=== PATIENT | male | born 1975 | race Caucasian/White ===

== ENCOUNTER → 2024-01-06 11:22 | Outpatient (REF) | payer BC, SELFPAY | LOC: RAD 11:22 | PROVIDERS: ATTENDING PHYSICIAN Family Medicine | DX: S90.32XA Contusion of left foot, initial encounter (principal) | CPT/HCPCS: 73630 ==

== ENCOUNTER 2024-02-01 19:14 | Emergency (ER) | payer SELFPAY ==
[2024-02-01 19:18] VITALS: BP 154/105
--- NOTE | 2024-02-01 20:00 | ED.GENMED ---
History of Present Illness
General
Chief Complaint: Musculo-Skeletal Complaint
Source: patient
Time Seen by Provider: 02/01/24 19:49
History of Present Illness
History of Present Illness:
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
towards an embankment and after things settle down noticed some pain in the posterior portion of his knee and limited range of motion. Patient does note previous ACL repair in the same knee a few years ago. No other injuries or concerns at this
time.
Past History
Past History
ED Past Medical History: Other (Psoriasis)
ED Past Surgical History: Orthopedic
Social History
Tobacco: Non-smoker
Alcohol: Occasional
Drug: None
Personal:
Living: with family
Employment: Employed
Review of Systems
Review of Systems
All Other Systems: ROS reviewed and negative except as documented in HPI and ROS
Phy Exam
Physical Exam
Physical Exam:
GENERAL: Alert , in no apparent distress
EYE: conjunctiva clear
Head: Normocephalic atraumatic
NECK: Supple,
ENT: mmm.
LUNGS: no acute respiratory distress
NEUROLOGICAL: Alert and oriented
SKIN: Warm and dry, skin intact.
MUSCULOSKELETAL: Left knee: No soft tissue swelling, erythema, ecchymosis, abrasions or lacerations. No joint effusion. There is tenderness posteriorly at the popliteal fossa. Patient has limited flexion secondary to pain. Able to fully extend
without difficulty. No joint laxity. No tenderness over the patellofemoral jointline anteriorly. No medial or lateral tenderness along the patella.
PSYCH: Normal and appropriate interaction.
Scores
Heart Failure Risk
Heart Failure Risk Score: Not Applicable
Heart Score for Chest Pain Patients
STEMI patient?: Not applicable
Withdrawal Assessment of Alcohol
Withdrawal Assessment Completed?: Not applicable
Course
Orders/Labs/Results
Orders:
Orders
02/01/24 19:23
Knee, Left 4 or More Views [CR Knee - Left 4 Or More View*] Urgent
Comment:
Reason For Exam: injury
02/01/24 20:00
Crutches-Treatment ONCE
Knee Immobilizer Left-Treatmen ONCE
Vital Signs
Initial and Last Documented VS:
Initial Vital Signs
Temp Pulse Resp BP Pulse Ox
98.2 F 101 20 154/105 96
02/01/24 19:18 02/01/24 19:18 02/01/24 19:18 02/01/24 19:18 02/01/24 19:18
Last Documented Vital Signs
Temp Pulse Resp BP Pulse Ox
98.2 F 101 20 154/105 96
02/01/24 19:18 02/01/24 19:18 02/01/24 19:18 02/01/24 19:18 02/01/24 19:18
MDM/Problems Addressed
Differential Diagnosis Includes:
Ligamentous injury, meniscal injury, less concern for fracture
MDM/Problems Addressed:
48-year-old male presenting the ER for evaluation of left knee pain while apprehending a suspect. Patient notes previous history of ACL repair in the same knee. X-ray was ordered from triage and does not show any acute abnormalities. I suspect a
possible ligamentous sprain. Will place patient in a knee immobilizer, ice and elevation, crutches as needed. Patient can use NSAIDs/Tylenol as needed for pain. He had seen [facility] orthopedics in the past and will contact them for a
follow-up visit. Aware of return precautions to the ER.
*Radiology
Radiology exam reviewed: preliminary read by ED provider (No acute fracture)
*Pulse Oximetry
Patient hypoxic: no
*Critical Care Note
Total Time (30-74mins, 75-104mins- exclusive of procedures): Not Applicable
ED Attending Note
-
Portions of this chart may have been created with voice recognition software.� Occasional wrong word or��sound alike� substitutions may have occurred due to the inherent limitations of voice recognition software.
Discharge Plan
Departure
Patient Disposition: Home (Routine Discharge)
Date of Disposition: 02/01/24
Time of Disposition: 20:00
Patient with high blood pressure during this ER visit?: Yes
Discharge Problem:
Left knee pain
Instructions: Knee Pain (DC)
Prescriptions:
No Action
sulfamethoxazole-trimethoprim 1 TABLET tablet
1 tab PO BID Qty: 14 0RF
Referrals:
Alcides King MD [Active] -
Stand Alone Forms: Return to Work
Interventions
Interventions:
*Risk Screen - Suicide Last Done: 02/01/24 19:18
*General Assessment Last Done: 02/01/24 19:18
*Neglect/Abuse Screening Last Done: 02/01/24 19:18
ED- Fall Risk Assessment Last Done: 02/01/24 19:18
*ED COVID-19 Vaccine History Last Done: 02/01/24 19:18
*Nursing Disposition Last Done: 02/01/24 20:14
ED-Musculoskeletal Assessment Last Done: 02/01/24 20:13
Discharge Date and Time
Discharge Date/Time: 02/01/24 20:22
Print Language: PALESTINIAN
== END 2024-02-01 20:22 | disposition home or self-care (01) ==
LOC: EMR 19:14
PROVIDERS: EMERGENCY PHYSICIAN Student in an Organized Health Care Education/Training Program; FAMILY PHYSICIAN Family Medicine
DX: S89.92XA Unspecified injury of left lower leg, initial encounter (principal); M25.562 Pain in left knee; W17.81XA Fall down embankment (hill), initial encounter; Y93.89 Activity, other specified; Y92.89 Other specified places as the place of occurrence of the external cause; Y99.0 Civilian activity done for income or pay; R03.0 Elevated blood-pressure reading, without diagnosis of hypertension; L40.9 Psoriasis, unspecified
CPT/HCPCS: 99283; 29505; 73564

== ENCOUNTER 2024-03-02 01:51 | Emergency (ER) | payer BC, SELFPAY ==
[2024-03-02] VITALS (7 sets, daily range): BP systolic 133–177; BP diastolic 79–114; BMI 36.1
[2024-03-02] MEDS: TORADOL 15 MG IV (02:28)
[2024-03-02 02:39] LABS: % Basophils 0.5 % (0-2); % Eosinophils 2.4 % (0-6); % Immature Granulocytes 0.4 % (0-0.5); % Monocytes 12.8 % (1.7-9.3); % Neutrophils 59.9 % (42.2-75.2); Absolute Eosinophils 0.2 10^3/uL (0-0.7); Absolute Monocytes 1.1 10^3/uL (0.1-0.6); Hematocrit 46.6 % (39.0-52.0); Hemoglobin 16.2 g/dL (13.0-18.0); Mean Corp Hgb Conc. 34.8 g/dL (33.0-37.0); Mean Corpuscular Hgb 30.6 pg (27.0-31.0); Mean Corpuscular Volume 87.9 fL (80.0-94.0); Mean Platelet Volume 11.3 fL (7.4-10.4); Nucleated Red Blood Cells % 0 % (-); Platelet Count 216 10^3/uL (130-400); Red Cell Dist. Width 12.5 % (11.5-14.5); White Blood Cell Count 8.3 10^3/uL (4.8-10.8)
[2024-03-02 02:58] LABS: ALT (SGPT) 61 U/L (0-50); AST (SGOT) 32 U/L (17-59); Albumin 4.3 g/dl (3.5-5.0); Alkaline Phosphatase 60 U/L (38-126); Blood Urea Nitrogen 17 mg/dl (9-20); Calcium 9.7 mg/dl (8.4-10.2); Carbon Dioxide 28 mmol/L (22-30); Chloride 102 mmol/L (98-107); Estimated Creatinine Clearance 118 ml/min; Glucose 126 mg/dl (70-99); Lipase 155 U/L (23-300); Potassium 4.2 mmol/L (3.5-5.1); Sodium 142 mmol/L (135-145); Total Bilirubin 0.3 mg/dl (0.2-1.3); Total Protein 6.9 g/dl (6.3-8.2); eGFR > 60.00
[2024-03-02] MEDS: ZOFRAN 4 MG IV (02:58)
[2024-03-02] MEDS: DILAUDID 0.5 MG IV (02:58)
--- NOTE | 2024-03-02 05:51 | ED.GENMED ---
History of Present Illness
General
Chief Complaint: Abdominal Pain
Time Seen by Provider: 03/02/24 02:50
History of Present Illness
History of Present Illness:
48-year-old male presents with right upper quadrant abdominal pain. He states that he feels like he is having a gallbladder attack. He had similar pain approximately 6 months ago. That resolved on its own and he never followed up. Denies fever
or chills. Denies headache or confusion. Denies chest pain or shortness of breath. He states that this pain awakened him from sleep. 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 Denies alcohol in excess.
Past History
Past History
ED Past Medical History: Other (Psoriasis)
ED Past Surgical History: Orthopedic
Social History
Tobacco: Non-smoker
Alcohol: Occasional
Drug: None
Personal:
Living: with family
Employment: Employed
Phy Exam
General Physical Exam
General Presentation: moderate distress
General Skin: warm and dry
General Habitus: normal
General Mental: alert
General Hydration: appears well hydrated
ENT Exam
ENT Exam: EOMI, pharynx normal, neck supple and normocephalic
Eye Exam
Eye Exam: PERRL, cornea clear and conjunctiva normal
Cardiovascular Exam
Cardiovascular Exam: regular rate/rhythm and no edema
Pulmonary Exam
Pulmonary Exam: lungs clear, no respiratory distress, no rales, no crackles, no rhonchi, no stridor, no wheezing and no cough
Gastrointestinal Exam
Gastrointestinal Exam: normal bowel sounds, non tender, soft, no organomegaly, no pulsatile mass and non distended
Palpation: right upper quadrant: Mild tenderness
Neurological Exam
Neurological Exam: alert, oriented x3, no motor deficits and speech normal
Musculoskeletal Exam
Musculoskeletal Exam: full ROM and no edema
Skin Exam
Skin Exam: normal color, warm/dry, no rash and no petechia
Psychiatric Exam
Psychiatric Exam: normal mood/affect
Course
Orders/Labs/Results
Orders:
Orders
03/02/24 01:56
ECG [Electrocardiogram (*1)] Urgent
Reason for Study: Abdominal Pain
EKG- Treatment ONCE
03/02/24 02:11
IV Insert/Care/Rem.- Treatment PRN
03/02/24 02:17
US Abdomen Complete/Upper Urgent
Comment:
Reason For Exam: ruq abd pain
03/02/24 02:22
Complete Blood Count/With Diff Urgent
Comprehensive Metabolic Panel Urgent
Lipase Urgent
03/02/24 02:23
Ketorolac [Toradol] 15 mg .ROUTE .STK-MED ONE
03/02/24 02:27
Ketorolac [Toradol] 15 mg IV NOW STA
03/02/24 02:55
HYDROmorphone [Dilaudid] 0.5 mg IV NOW STA
Ondansetron Injectable [Zofran] 4 mg IV NOW STA
Abnormal Lab Results
03/02/24
02:22
MPV 11.3 H fL
(7.4-10.4)
Absolute Monos (auto) 1.1 H 10^3/uL
(0.1-0.6)
Monocytes % 12.8 H %
(1.7-9.3)
Glucose 126 H mg/dl
(70-99)
ALT 61 H U/L
(0-50)
03/02/24 02:22
03/02/24 02:22
Vital Signs
Initial and Last Documented VS:
Initial Vital Signs
Temp Pulse Resp BP Pulse Ox
98.1 F 75 19 177/114 97
03/02/24 01:54 03/02/24 01:54 03/02/24 01:54 03/02/24 01:54 03/02/24 01:54
Last Documented Vital Signs
Temp Pulse Resp BP Pulse Ox
98.1 F 69 18 133/79 97
03/02/24 01:54 03/02/24 02:26 03/02/24 06:00 03/02/24 05:56 03/02/24 06:00
*Critical Care Note
Total Time (30-74mins, 75-104mins- exclusive of procedures): Not Applicable
Update Note
Update Note:
03/02/2024 0556 AM: Patient is resting comfortably. He does not have any right upper quadrant abdominal pain at this time. He wishes to be discharged. I did discuss return to ER instructions with patient. He expresses good understanding. He will
follow-up with general surgery as an outpatient. He will follow a simple diet. Patient has no further questions at this time. I feel that he has good understanding of discharge instructions.
Patient ambulated out of the department with a brisk and steady gait. In absolutely no acute distress. Patient thanked us for our help.
ED Attending Note
-
Portions of this chart may have been created with voice recognition software.� Occasional wrong word or��sound alike� substitutions may have occurred due to the inherent limitations of voice recognition software.
Discharge Plan
Departure
Patient Disposition: Home (Routine Discharge)
Date of Disposition: 03/02/24
Time of Disposition: 05:57
Patient with high blood pressure during this ER visit?: Yes
Condition: Good
Discharge Problem:
Biliary colic
Instructions: Clear Liquid Diet, Gallstones (DC), BLOOD PRESSURE
Prescriptions:
No Action
Tremfya 100 mg/mL Auto-Injector
100 mg SC Q8W
Referrals:
Yovany Dupont DO [Family Provider] -
Alexander Lagos MD [Active] - Call in 1-3 days for appt
Activity Restrictions/Additional Instructions:
It was a pleasure meeting you and taking part in your care. We hope for your continued healing and wellness.
Please read discharge instructions in their entirety. However, they are for general education and may not describe your exact diagnosis at discharge. Information on your ER visit and medical conditions were discussed with you along with appropriate
follow up information...
If indicated, please take your medications as instructed and indicated on discharge paperwork.
Please schedule a follow up appointment as directed. Call to schedule an appointment
Please return to the emergency department with ANY change in, persisting, or worsening of symptoms. If any of your symptoms do not improve, or persist, or become more severe within 6-12 hours, please return to the emergency department for further
care.
Please return to the emergency department if you develop a headache, neck pain/stiffness, fever greater than 100.4F, chest pain, shortness of breath, persistent nausea, vomiting, slurred speech, difficulty walking, numbness/tingling, weakness, signs
of infection or any other symptoms that are worrisome to you.
If you have any questions or concerns please do not hesitate to call the Hospital at or E-mail me directly at [email or web address]
Interventions
Interventions:
*Risk Screen - Suicide Last Done: 03/02/24 01:54
*General Assessment Last Done: 03/02/24 01:54
*Neglect/Abuse Screening Last Done: 03/02/24 01:54
ED- Fall Risk Assessment Last Done: 03/02/24 02:47
*ED COVID-19 Vaccine History Last Done: 03/02/24 01:54
*Nursing Disposition Last Done: 03/02/24 06:05
IS-Idgchx-Vrrsegikpq Assessment Last Done: 03/02/24 02:47
Discharge Date and Time
Discharge Date/Time: 03/02/24 06:06
Print Language: SAMI
== END 2024-03-02 06:06 | disposition home or self-care (01) ==
LOC: EMR 01:51
PROVIDERS: EMERGENCY PHYSICIAN Student in an Organized Health Care Education/Training Program; FAMILY PHYSICIAN Family Medicine
DX: K80.70 Calculus of gallbladder and bile duct without cholecystitis without obstruction (principal); L40.9 Psoriasis, unspecified
CPT/HCPCS: 99284; 96374; 96375; 76700; 80053; 83690; 85025; 93005

== ENCOUNTER 2024-05-10 06:43 | Day surgery (SDC) | payer BC, SELFPAY ==
--- NOTE | 2024-05-04 16:12 | PTCARENOTE ---
Abn EKG 03/02/24, Dr Harry notified and no further intervention required.
[2024-05-10] VITALS (10 sets, daily range): BP systolic 123–152; BP diastolic 73–88; BMI 35.4
[2024-05-10] MEDS: TYLENOL 1000 MG PO (11:38)
--- NOTE | 2024-05-10 12:10 | W.SUR.PREOP ---
Pre-Operative Surgical Note
-
I have examined this patient prior to the performance of the scheduled procedure.
The patient's condition is unchanged from the time of the current History and
Physical and the patient is able to undergo the scheduled procedure.
--- NOTE | 2024-05-10 12:11 | HP.FOC2 ---
Focused History & Physical
Chief Complaint
HPI:
Chief Complaint: Postprandial right upper quadrant pain
HPI / Indication for Planned Procedure: Laparoscopic cholecystectomy with intraoperative cholangiogram
Relevant Past Medical History: Negative
Relevant Social History: Negative
Relevant Family History: Negative
Relevant Past Surgical History: Negative
Review of Systems
Review of Pertinent Systems: All Systems Negative
Medication
See Medication form for detailed medications: Yes
Medication List (including Herbals & OTC):
guselkumab 100 mg/mL subcutaneous auto-injector (Tremfya) 100 mg SC Q8W 03/02/24
Medications Reviewed: Yes
Allergies and Reactions
Patient has Allergies: Yes
Noted Allergies and Reactions:
Allergy/AdvReac Type Severity Reaction Status Date / Time
No Known Allergies Allergy Verified 05/10/24 11:23
Pertinent Physical Exam
All Other Systems: Negative
Head/Neck: Normal
Diagnosis / Assessment
Biliary colic
Plan / Procedure
Laparoscopic cholecystectomy with cholangiogram
Anesthesia/Sedation to be done by Anesthesia Provider: Yes
--- NOTE | 2024-05-10 14:36 | W.IMMPOSTOP ---
Surgical Immed Post Op Note
-
Primary Surgeon: Alexander Lagos MD
Assisting Surgeon: None
Pre-op Diagnosis: Biliary colic, fatty liver disease
Post-op Diagnosis: Same
Procedure Performed:
1. Laparoscopic cholecystectomy with cholangiogram
2. Liver biopsy
Anesthesia Type: General
Specimen / Cultures:
1. Gallbladder and contents
2. Liver biopsy
Estimated Blood Loss: 7 cc
Complications: [None]
Operative Findings: Fairly distended gallbladder with some edema and scar tissue in the cystic triangle. Critical view of safety obtained prior to a cholangiogram which demonstrated no filling defect and normal biliary anatomy. The anterior cystic
artery was quite diminutive and clipped. A more robust posterior cystic artery was also identified and clipped. The cystic duct stump was clipped and reinforced with a 0 PDS Endoloop.
--- NOTE | 2024-05-10 14:38 | OR.RPT ---
Operative Report
Operative Report
Patient Name: Jacinto Cannon
: 1975
Date of Operation: 05/10/2024
Preoperative Diagnosis: Symptomatic Cholelithiasis, fatty liver disease
Postoperative Diagnosis: Same
Procedure(s):
1. Laparoscopic Cholecystectomy with Cholangiogram
2. Liver biopsy
Surgeon(s):
Dr. Lagos
Bottom Wheeler(s):
RAMON Cardoso
Anesthesia: General
Estimated Blood Loss: 7 cc
Urine Output: None
Drains/Lines/Implants: None
Specimens:
1. Gallbladder and contents
2. Liver biopsy
HPI/Surgical Indications:
This is a 49-year-old male with a history of obesity and postprandial right upper quadrant pain. Exam, labs and imaging are consistent with symptomatic cholelithiasis. Risks/Benefits/Alternatives were discussed at length, and the patient agreed to
proceed with surgery.
Operative Findings: Fairly distended gallbladder with some edema and scar tissue in the cystic triangle. Critical view of safety obtained prior to a cholangiogram which demonstrated no filling defect and normal biliary anatomy. The anterior cystic
artery was quite diminutive and clipped. A more robust posterior cystic artery was also identified and clipped. The cystic duct stump was clipped and reinforced with a 0 PDS Endoloop.
Procedure Description:
The patient was brought to the Operating Room and placed in the supine position. IV antibiotics were infused and sequential compression devices were confirmed to be on. Following uneventful induction of general endotracheal anesthesia, an
orogastric tube was placed. The abdomen was prepped and draped in the usual sterile fashion. The abdomen was entered using a left subcostal Veress technique which required a single pass followed by a 5 mm right upper quadrant Optiview trocar.
Pneumoperitoneum to 15 mmHg pressure was obtained without difficulty and we confirmed that no injury had occurred during our entry. The patient was positioned in reverse trendelenberg and rotated with the right side up slightly. Two 5mm trocars were
then placed along the right subcostal margin. A locking grasping forceps was placed on the fundus of the gallbladder where it was then retracted cephalad and to the right. Using appropriate grasping instruments, the peritoneum overlying the triangle
of Calot was incised. The gallbladder was fairly distended and there was some edema/scar tissue in the cystic triangle consistent with chronic cholecystitis. The cystic duct/gallbladder junction was identified, dissected circumferentially. A
diminutive anterior cystic artery was identified medially and was dissected circumferentially, as well as a more robust posterior cystic artery. A critical view was obtained. The cystic artery branches were clipped and divided. A clip was then
placed on the cystic duct/gallbladder junction and an intraoperative cholangiogram performed using fluoroscopy, which showed good flow of dye into the duodenum. There were no intra- or extrahepatic bile duct filling defects. The biliary anatomy
appeared normal. Following completion of the cholangiogram, the catheter was removed. Two clips were then placed proximally on the cystic duct and the duct divided. The cystic duct stump was reinforced with a 0 PDS Endoloop. The remaining soft
tissue attachments of the gallbladder to the liver bed were then divided using electrocautery. There was some spillage of bile, but no spillage of stones. The gallbladder bed was inspected and excellent hemostasis was obtained. The gallbladder
was extracted through the 12 mm trocar site using an endocatch bag. We then turned our attention to the liver which appeared grossly abnormal and consistent with fatty liver disease. A account representative sample of the liver was biopsied from segment
4B. Hemostasis was achieved at the biopsy site. The sample was removed and passed off as a separate specimen. The abdomen was again irrigated and excellent hemostasis was assured. The 12 mm trocar site, which had to be enlarged was closed using 2
figure of 8s of 0 PDS. All remaining trocars were then removed and the pneumoperitoneum was evacuated. All trocar sites were closed at the skin level using 4-0 Monocryl followed by Dermabond. Overall, the patient tolerated the procedure well and
was taken to the Recovery Room postoperatively in stable condition.
I was the attending physician and performed the procedure with assistance from the BLACKJACK DEALER above. I was present for all portions of the case, excluding wound closure.
Alexander Lagos MD
[2024-05-10] MEDS: SUBLIMAZE 25 MCG IV ×2 (14:46→14:58)
[2024-05-10] MEDS: ROXICODONE 5 MG PO (15:58)
== END 2024-05-10 16:30 | disposition home or self-care (01) ==
LOC: SDS 06:43
PROVIDERS: ATTENDING PHYSICIAN Surgery
DX: K80.10 Calculus of gallbladder with chronic cholecystitis without obstruction (principal); K76.0 Fatty (change of) liver, not elsewhere classified
CPT/HCPCS: 47563; 47000; 88304; 88307; 74300; 76000; 88313; A4300

== ENCOUNTER → 2024-05-23 15:03 | Outpatient (REF) | payer BC, SELFPAY | LOC: RAD 15:03 | PROVIDERS: ATTENDING PHYSICIAN Surgery; FAMILY PHYSICIAN Family Medicine | DX: R10.11 Right upper quadrant pain (principal); Z90.49 Acquired absence of other specified parts of digestive tract | CPT/HCPCS: 74177; Q9967 ==